=== PATIENT | male | born 1950 | race American Indian/Alaskan Native ===

== ENCOUNTER 2017-11-18 16:10 | Emergency (ER) | payer SELFPAY ==
[2017-11-18 16:25] VITALS: BP 124/77
--- NOTE | 2017-11-18 17:58 | XRay Report ---
FINAL REPORT EXAM: XR FINGER(S) 2+V RT HISTORY: laceration to fingers 3 and 4th TECHNIQUE: Right hand four views PRIORS: None. FINDINGS: Soft tissue defects are seen distal aspects of the 3rd and 4th fingers. There is a tiny avulsion fracture tip of the tuft distal phalanx 4th digit. No radiopaque foreign bodies identified. Joint spaces are within normal limits. IMPRESSION: Tiny chip fracture tuft distal phalanx of the 4th digit Soft tissue defect distal aspects of the 3rd and 4th digits
== END 2017-11-18 17:40 | disposition left against medical advice (07) ==
LOC: ED 16:10
DX: S61.219A Laceration without foreign body of unspecified finger without damage to nail, initial encounter (principal); Z53.21 Procedure and treatment not carried out due to patient leaving prior to being seen by health care provider; W45.8XXA Other foreign body or object entering through skin, initial encounter; Y93.89 Activity, other specified; Y99.8 Other external cause status; Y92.89 Other specified places as the place of occurrence of the external cause